=== PATIENT | male | born 1975 | race Caucasian/White ===

== ENCOUNTER 2024-08-08 14:05 | Emergency (ER) | payer OTHER, SELFPAY ==
[2024-08-08 14:09] VITALS: BP 147/98; PULSE 83; RESP 19; TEMP 36.6; O2SAT 98; BMI 28.7
--- NOTE | 2024-08-08 14:20 | ED_ITS ---
HPI - General Adult General Chief complaint: General Medical Stated complaint: carbon monoxide levels Time Seen by Provider: 08/08/24 14:56 Source: patient Mode of arrival: ambulatory Limitations: no limitations History of Present Illness ED Provider: ROBSON HARVEY PA-C HPI narrative: 48 year old male with no significant pmhx presents to the ED today for evaluation following carbon monoxide exposure yesterday. Admits that while at work yesterday he was exposed to high levels of carbon monoxide from a pool heater for approximately 6 hours. He was informed by employer today, advised to come to the ED for evaluation. Patient admits to feeling increased fatigue last night which has resolved. Feels well today. No physical complaints at present. Related Data Allergies Allergy/AdvReac Type Severity Reaction Status Date / Time No Known Allergies Allergy Verified 08/08/24 14:11 Review of Systems 2 Review of Systems: Constitutional: No fever, chills, fatigue, night sweats, weight changes ENT/Mouth: No ear pain, hearing loss, nasal congestion, sinus pain, rhinorrhea, sore throat Eyes: No eye pain, swelling, redness, vision changes, discharge Cardio: No chest pain, palpitations, ROJAS, orthopnea, peripheral edema Pulm: No SOB, cough, sputum, wheezing, dyspnea, hemoptysis GI: No nausea, vomiting, hematemesis, abdominal pain, diarrhea, constipation, hematochezia, melena : No irregular bleeding, dysuria, frequency, urgency, hesitancy, hematuria, flank pain, urinary flow changes, urinary incontinence or retention MSK: No back pain, neck pain, joint pain, myalgias Skin: No lesions, rashes Neuro: No weakness, numbness, paresthesias, LOC, dizziness, headache Psych: No anxiety/panic, depression, SI/HI, AH/VH All other systems reviewed and are negative. FOR[facility], [facility] Past Medical History Attestation statement: The following information was validated with the patient. Source: old records reviewed and nursing notes reviewed Physical Exam ED Vital Signs: Vital Signs - 24 hr 08/08/24 14:09 Temperature 98 F Pulse Rate 83 Respiratory Rate 19 Blood Pressure 147/98 H Pulse Oximetry 98 BMI result Body Mass Index 28.7 vital signs stable General: Well appearing, in no acute distress. Skin: Warm, dry, intact. No rashes or lesions. Head: Normocephalic, atraumatic. EENT: Hearing is intact b/l. Conjunctiva clear. PERRLA. EOM intact. Moist mucous membranes.? Neck: Supple without LAD Cardiac: Chest wall symmetric. RRR. Lungs: Normal respiratory effort without accessory muscle use. CTA bilaterally. Abdomen: Soft, non-tender, non-distended Back: No midline spinous or paraspinal tenderness. No step off deformity. Ext: Upper and lower extremities atraumatic, without tenderness, deformity, swelling or erythema. Full ROM throughout. Neuro: AOx3. Normal speech. Ambulating with steady gait. Psych: Appropriate mood and affect. Responds appropriately to questions. Course Course Course Narrative: This is a Rapid Medical Examination (RME) performed by Shameka Harvey PA-C in triage. Full HPI, ROS, assessment and treatment plan per primary provider in the Main ED. 48 yo male here for eval of carbon monoxide exposure yesterday. while at work reports smelling something odd . was exposed to this for approx 6 hours. told today that there was a large carbon monoxide leak. felt fatigued yesterday, feels fine today. Plan: labs, carbon monoxide level, vbg Reevaluation(s) Reevaluation #1: 1505 -- CBC without leukocytosis or left shift. no anemia. h&h stable. VBG showing slight increase in bicarb to 29, otherwise wnl. Carboxyhemoglobin WNL at 0.5%. Chemistry without acute electrolyte abnormality requiring intervention. > I contacted poison control. After looking over the case, vitals, lab results, recommending EKG and symptomatic treatment if this is WNL. Poison control states that they typically recommend O2 and carboxyhemoglobin is over 5% however patient is well within normal limits. Only symptomatic treatment warranted at this time. 1522 -- EKG showing normal sinus rhythm with a rate of 72 beats per minute. No acute ischemic changes or ST elevations. At this time I feel patient is stable for discharge home. Patient has remained stable throughout ED visit today. Discussed worrisome signs and symptoms and when to return to the ED. All questions answered at this time. Patient is agreeable with disposition and stable for discharge. Medical Decision Making Medical Decision Making MDM Narrative: 48 year old male with no significant pmhx presents to the ED today for evaluation following carbon monoxide exposure yesterday. Slightly hypertensive to 147/98, vitals otherwise WNL. Not hypoxic. Nontoxic-appearing and in no acute distress. He is A&O x3. Exam is nonfocal. Lungs are CTA bilaterally without adventitious breath sounds. Posterior oropharynx WNL. Differential diagnosis includes anemia, electrolyte abnormality, dehydration, carbon monoxide toxicity, arrhythmia Plan for basic labs, carboxyhemoglobin, VBG, EKG, re-evaluation. Differential Diagnosis Differential Diagnoses: The differential diagnosis associated with the presentation includes as above. Admission/Observation not indicated. Lab Data MDM Lab Attestation statement: I reviewed the patient's lab results. as above. 08/08/24 14:38 08/08/24 14:38 Labs: Lab Results 08/08/24 08/08/24 08/08/24 Range/Units 14:38 14:46 14:48 WBC 7.2 (4.8-10.8) X10*3/uL RBC 4.72 (4.60-5.80) X10*6/uL Hgb 14.2 (14.0-18.0) g/dl Hct 41.7 L (42.0-52.0) % MCV 88.3 (80.0-98.0) fL MCH 30.1 (27.0-33.0) pg MCHC 34.1 (31.0-36.0) g/dl RDW 11.9 (11.0-16.0) % Plt Count 312 (160-400) X10*3/uL MPV 10.5 (9.4-12.4) fL Immature Gran % (Auto) 0.1 (0.0-0.4) % Neut % (Auto) 66.2 (45-73) % Lymph % (Auto) 21.2 (20-40) % Major % (Auto) 6.1 (2-11) % Eos % (Auto) 5.8 H (0-4) % Baso % (Auto) 0.6 (0-2) % Lymph # (Auto) 1.5 (1.2-4.9) X10*3/uL Major # (Auto) 0.4 (0.1-1.2) X10*3/uL Eos # (Auto) 0.4 (0.0-0.4) X10*3/uL Baso # (Auto) 0.0 (0.0-0.2) X10*3/uL Abs Immat Gran (auto) 0.01 (0.00-0.03) X10*3/uL Absolute Neuts (auto) 4.8 (2.0-8.3) x10*3/uL Absolute Nucleated RBC 0.000 (0.0-0.012) X10*3/uL Nucleated RBC % (auto) 0.0 (0.0-0.2) /100WBC VBG pH 7.39 (7.32-7.43) VBG pCO2 48 mmHg VBG pO2 53 mmHg VBG HCO3 29 H (22-26) mmol/L VBG O2 Saturation 83.0 % VBG Base Excess 3.8 mmol/L Carboxyhemoglobin % 0.5 % Sodium 143 (135-145) mmol/L Potassium 3.5 (3.3-5.1) mmol/L Chloride 106 (96-108) mmol/L Carbon Dioxide 28 (22-29) mmol/L Anion Gap 13 (12-20) BUN 9 (9-16) mg/dL Creatinine 1.00 (0.5-1.4) mg/dL Estim Creat Clear Calc 102.3 Estimated GFR > 60 Random Glucose 84 (60-115) mg/dL Calcium 10.2 (8.4-10.2) mg/dL Magnesium 2.3 (1.6-2.6) mg/dL Total Bilirubin 0.3 (0.0-1.0) mg/dL AST 24 (5-37) U/L ALT 39 (0-40) U/L Alkaline Phosphatase 118 H (39-117) U/L Total Protein 8.3 H (6.5-8.0) g/dL Albumin 4.6 (3.5-5.0) g/dL Independent Interpretation I performed an independent interpretation of an: EKG Interpretation: EKG showing NSR with a rate of 72 beats per minute, QT 398, QTC 435, no acute ischemic changes or ST elevations. Social Determinants Patient?s care significantly limited by Social Determinants of Health including: Other Social Determinant of Health Critical Care Time Critical Care Time Critical Care Time: No Discharge Plan Discharge Clinical Impression: Carbon monoxide exposure Patient Disposition: Home, Self-Care Instructions: Carbon Monoxide Poisoning (ED) Additional Instructions: Your blood work today is reassuring. The levels of carbon monoxide in your blood are low, almost undetectable and within normal range. Please control was contacted and only recommends symptomatic treatment at this time. 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 Please follow up with PCP as needed. Return with new or worsening symptoms. In the case of an emergency call 911. Stand Alone Forms: Work/School Release Print Language: Malay
[2024-08-08 14:46] LABS: MANUAL DIFF FLAG NO
[2024-08-08 14:51] LABS: Carbon Monoxide POC 0.5 %
[2024-08-08 14:51] LABS: VBG Base Excess 3.8 mmol/L; VBG HCO3 29 mmol/L (22-26); VBG pCO2 48 mmHg; VBG pH 7.39 (7.32-7.43); VBG pO2 53 mmHg
[2024-08-08 14:52] LABS: Carbon Monoxide Refer to POC result; Venous Blood Gas Refer to POC result
[2024-08-08 15:00] LABS: Basophils Percent Auto 0.6 % (0-2); Eosinophils Absolute Auto 0.4 X10*3/uL (0.0-0.4); Eosinophils Percent Auto 5.8 % (0-4); Hematocrit 41.7 % (42.0-52.0); Hemoglobin 14.2 g/dl (14.0-18.0); Imm Gran Abs Auto 0.01 X10*3/uL (0.00-0.03); Imm Gran Pct Auto 0.1 % (0.0-0.4); Lymphocytes Absolute Auto 1.5 X10*3/uL (1.2-4.9); Lymphocytes Percent Auto 21.2 % (20-40); Mean Corpuscular HGB Conc 34.1 g/dl (31.0-36.0); Mean Corpuscular Hemoglobin 30.1 pg (27.0-33.0); Mean Corpuscular Volume 88.3 fL (80.0-98.0); Mean Platelet Volume 10.5 fL (9.4-12.4); Monocytes Absolute Auto 0.4 X10*3/uL (0.1-1.2); Monocytes Percent Auto 6.1 % (2-11); Neutrophils Absolute Auto 4.8 x10*3/uL (2.0-8.3); Neutrophils Percent Auto 66.2 % (45-73); Platelet Count 312 X10*3/uL (160-400); Red Blood Count 4.72 X10*6/uL (4.60-5.80); Red Cell Distribution Width 11.9 % (11.0-16.0); White Blood Count 7.2 X10*3/uL (4.8-10.8)
--- NOTE | 2024-08-08 15:03 | ECG_ITS ---
Test Reason : carbon monoxide exposure Blood Pressure : / mmHG Vent. Rate : 072 BPM Atrial Rate : 072 BPM P-R Int : 114 ms QRS Dur : 088 ms QT Int : 398 ms P-R-T Axes : 060 010 046 degrees QTc Int : 435 ms Normal sinus rhythm Normal ECG No previous ECGs available Referred By: Charlotte Harvey Electronically Signed By:CHEVY BERRY
[2024-08-08 15:19] LABS: Alanine Aminotransferase 39 U/L (0-40); Albumin Level 4.6 g/dL (3.5-5.0); Alkaline Phosphatase 118 U/L (39-117); Anion Gap 13 (12-20); Aspartate Amino Transferase 24 U/L (5-37); Bilirubin Total 0.3 mg/dL (0.0-1.0); Blood Urea Nitrogen 9 mg/dL (9-16); Calcium 10.2 mg/dL (8.4-10.2); Carbon Dioxide 28 mmol/L (22-29); Chloride 106 mmol/L (96-108); Creatinine Clr Calc Pharmacy 102.3; Estimated Glomerular Filt Rate > 60; Glucose Random 84 mg/dL (60-115); Magnesium 2.3 mg/dL (1.6-2.6); Potassium 3.5 mmol/L (3.3-5.1); Sodium 143 mmol/L (135-145); Total Protein 8.3 g/dL (6.5-8.0)
[2024-08-08 15:22] VITALS: BP 147/98; PULSE 83; RESP 19; TEMP 36.6; O2SAT 98
== END 2024-08-08 15:25 | disposition home or self-care (01) ==
LOC: HO.ED 15:23
PROVIDERS: Physician Assistant Medical; Emergency Provider Emergency Medicine; PCP Family Medicine
DX: T58.8X1A Toxic effect of carbon monoxide from other source, accidental (unintentional), initial encounter (principal); R53.83 Other fatigue; Y92.89 Other specified places as the place of occurrence of the external cause
CPT/HCPCS: 36415; 80053; 82375; 82803; 83735; 85025; 93005; 99283

== ENCOUNTER → 2024-08-08 15:03 | Outpatient (BNV) | payer OTHER, SELFPAY | PROVIDERS: Emergency Provider Emergency Medicine; PCP Family Medicine; Visit Provider Internal Medicine | DX: T58.91XA Toxic effect of carbon monoxide from unspecified source, accidental (unintentional), initial encounter (principal) | CPT/HCPCS: 93010 ==